=== PATIENT | female | born 1950 | race Caucasian/White ===

== ENCOUNTER → 2018-09-14 | Outpatient (CLI) | payer MEDICARE ==
--- NOTE | 2018-09-14 11:53 | RAD ---
MRI of the thoracic and lumbar spine without contrast 09/14/2018 CLINICAL HISTORY: Mid and low back pain. Recent fall. TECHNIQUE: Unenhanced T1-weighted and T2-weighted sagittal and axial and inversion recovery sagittal images of the thoracic and lumbar spine were obtained. FINDINGS: No previous imaging studies are available for comparison. Some of the images are degraded by patient motion. Very mild S-shaped curvature of the thoracolumbar spine is seen. There is slight accentuation of the normal thoracic kyphosis. Degenerative signal changes are seen involving all of the disks of the thoracic and throughout the lumbar spine. Degenerative signal changes are seen within the marrow surrounding these discs. No area of abnormal signal intensity is seen involving the thoracic spinal cord. An acute compression fracture is seen involving the T12 vertebral body. This vertebral body has lost 50 percent of its normal height. Retropulsion of bone fragments into the central spinal canal is seen, superiorly. This measure 6 mm in AP diameter. This effaces the anterior CSF resulting in moderate central spinal canal stenosis with mild to moderate cord impingement. No compression fracture of the lumbar vertebrae seen. Degenerative changes are seen involving the remaining thoracic disc spaces consisting of minimal to mild generalized disc bulges and degenerative changes involving the facet joints. These findings do not result in additional areas of significant central spinal canal stenosis. No neural foraminal stenosis is seen. The changes of degenerative disc disease are seen throughout the lumbar disc spaces. These consist of mild to moderate generalized disc bulges, degenerative changes involving the facet joints and mild to moderate ligamentum flavum hypertrophy. These findings result in mild to moderate central spinal canal stenosis at L2-3 and L4-5 and mild central spinal canal stenosis at L3-4 and L5-S1. No neural foraminal stenosis is seen. IMPRESSION: 1. An acute compression fracture is seen involving the T12 vertebral body. Retropulsion of bone fragments into the central spinal canal is seen, superiorly. This effaces the anterior CSF resulting in moderate central spinal canal stenosis with mild to moderate cord impingement. 2. Degenerative changes are seen involving the thoracic and lumbar spine as outlined above. These findings result in mild to moderate central spinal canal stenosis at L2-3 and L4-5 and mild central spinal canal stenosis at L3-4 and L5-S1. No neural foraminal stenosis is seen. Electronically signed by: Jacinto Handley MD (09/14/2018 11:49 AM) [id number]
== END | disposition home or self-care (01) ==
LOC: MRI 09:05
PROVIDERS: ATTEND Internal Medicine
DX: M48.54XA Collapsed vertebra, not elsewhere classified, thoracic region, initial encounter for fracture (principal); M48.061 Spinal stenosis, lumbar region without neurogenic claudication; M48.07 Spinal stenosis, lumbosacral region; M51.36 Other intervertebral disc degeneration, lumbar region; M40.294 Other kyphosis, thoracic region
CPT/HCPCS: 72146; 72148